=== PATIENT | male | born 1970 | race Two or more races ===

== ENCOUNTER 2017-12-05 23:25 | Emergency (ER) | payer OTHER ==
[~2017-12-05] VITALS: Ht 177.8 cm; Wt 74.8 kg
--- NOTE | 2017-12-05 23:30 | NUR ---
TO BED 1 A 47 YO MALE PATIENT BIBSELF C/O "CP X20 MINUTES." PATIENT IS AAOX4, NAD NOTED. VSS. SKIN WARM AND DRY. NO SOB. PLACED PATIENT ON CARDIAC AND VS MONITORING. COMFORT MEASURES RENDERED.
--- NOTE | 2017-12-05 23:32 | NUR ---
DR BORREGO AT BEDSIDE.
--- NOTE | 2017-12-05 23:36 | NUR ---
TECH AT BEDSIDE FOR EKG.
[2017-12-05] MEDS ORDERED: ASPIRIN 325 MG TABLET ONE (23:39)
[2017-12-05] MEDS ORDERED: LORAZEPAM INJ 2 MG/ML VIAL ONE (23:41)
--- NOTE | 2017-12-05 23:45 | NUR ---
STARTED A SALINE LOCK ON THE RAC G18, BLOOD DRAWN AND SENT TO LAB.
--- NOTE | 2017-12-05 23:50 | NUR ---
MEDICATED PATIENT ORDERED BY DR BORREGO.
[2017-12-05 23:56] LABS: BASOPHILS % (AUTO) 0.4 % (0.0-2.0); EOSINOPHILS # (AUTO) 0.3 /CMM (0.0-0.7); EOSINOPHILS % (AUTO) 2.8 % (0.0-6.0); HEMATOCRIT 45 % (39-51); HEMOGLOBIN 15.3 g/dL (13.5-17.5); LYMPHOCYTES # (AUTO) 2.3 /CMM (0.8-4.8); LYMPHOCYTES % (AUTO) 23.7 % (20.0-44.0); MEAN CORPUSCULAR HEMOGLOBIN 31 PG (26.0-33.0); MEAN CORPUSCULAR HGB CONC 34 g/dl (31.0-36.0); MEAN CORPUSCULAR VOLUME 91 fL (80-96); MONOCYTES # (AUTO) 0.7 /CMM (0.1-1.30); MONOCYTES % (AUTO) 7.2 % (2.0-12.0); NEUTROPHILS # (AUTO) 6.3 /CMM (1.8-8.9); NEUTROPHILS % (AUTO) 65.9 % (43.0-81.0); PLATELET COUNT (AUTO) 224 /CMM (150-450); RDW COEFFICIENT OF VARIATION 13.1 (11.5-15.0); RED BLOOD CELL COUNT(AUTO) 4.96 MIL/uL (4.5-6.0); WHITE BLOOD COUNT (AUTO) 9.5 K/uL (4.3-11.0)
--- NOTE | 2017-12-05 23:57 | NUR ---
XR AT BEDSIDE.
[2017-12-06] MEDS ORDERED: ASPIRIN 325 MG TABLET PO ONE
[2017-12-06] MEDS ORDERED: LORAZEPAM INJ 2 MG/ML VIAL IV ONE
[2017-12-06 00:06] LABS: CALCIUM, SERUM 9.1 mg/dL (8.5-10.1); CARBON DIOXIDE 31 mmol/L (21-32); CHLORIDE 108 mmol/L (98-107); CREATININE 1.3 mg/dL (0.6-1.3); GLUCOSE 112 mg/dL (74-106); POTASSIUM 3.9 mmol/L (3.5-5.1); SODIUM SERUM 144 mmol/L (136-145); UREA NITROGEN, BLOOD 22 mg/dL (7-18)
[2017-12-06 00:14] LABS: TROPONIN I < 0.017 ng/mL (0.00-0.056)
[2017-12-06 00:20] LABS: D-DIMER 0.19 mg/L(FEU (0.17-0.50); INR 1.03 (0.87-1.13)
--- NOTE | 2017-12-06 00:46 | NUR ---
IV removed. Catheter intact and site benign. Pressure and 4x4 applied to site. No bleeding noted. Patient discharged to home in stable condition. Written and verbal after care instructions given. Patient verbalizes understanding of instruction. Patient is ambulatory with steady gait, Instructed patient not to drive. vss. nad noted. Family with patient.
[2017-12-06 00:47] VITALS: BP 123/81
== END 2017-12-06 00:48 | disposition home or self-care (01) ==
LOC: ER 23:25
DX: F41.1 Generalized anxiety disorder (principal); R07.89 Other chest pain
CPT/HCPCS: 36415; 71045; 80048; 84484; 85025; 85378; 85730; 93005 ×2; 96374; 99285; A4606; J2060; Z7610